=== PATIENT | female | born 1995 | race Caucasian/White ===

== ENCOUNTER 2020-08-20 19:40 | Emergency (ER) | payer BC ==
[~2020-08-20] VITALS: Ht 162.6 cm; Wt 105.1 kg
--- NOTE | 2020-08-20 19:47 | PHYS DOC ---
General Adult HPI: HPI: ".. I ve been having some nausea.. and yesterday..and started gettingsome Rt. chest discomfort.. and some rt. upper abdomen pain..." " I even vomited.. and got a little headache now.." Patient is a 24 year old female who presents with above hx and complaints right lower and right upper abdomen pain associate with nausea and vomiting. Patient has some generalized malaise complaints and mild cephalgia. Patient denies any recent travel or specific ill contacts. No history of trauma. Patient denies any fevers or chills. Patient denies any intake bad food. Patient denies any trauma. Patient normally follows with Dr. Marshall. Review of Systems: Review of Systems: Constitutional: Denies fever or chills Eyes: Denies change in visual acuity HENT: Denies nasal congestion or sore throat Respiratory: Denies cough or shortness of breath Cardiovascular: Complains right lower chest discomfort GI: Complains of right upper quadrant abdominal pain, nausea, vomiting,. Denies bloody stools or diarrhea : Denies dysuria Musculoskeletal: Denies back pain or joint pain Integument: Denies rash Neurologic: Complains of mild headache,. Denies focal weakness or sensory changes Endocrine: Denies polyuria or polydipsia Lymphatic: Denies swollen glands Psychiatric: Denies depression or anxiety Family History: Family History: Noncontributory to presentation Current Medications: Current Meds: See nursing for home meds Physical Exam: PE: Constitutional: Well developed, well nourished, mild distress, non-toxic appearance. [] HENT: Normocephalic, atraumatic, bilateral external ears normal, oropharynx moist, no oral exudates, nose normal. [] Eyes: PERRLA, EOMI, conjunctiva normal, no discharge. [] Neck: Normal range of motion, no tenderness, supple, no stridor. [] Cardiovascular:Heart rate regular rhythm, no murmur [] Lungs & Thorax: Bilateral breath sounds equal apex auscultation [] Abdomen: Bowel sounds hyperactive, soft, right upper quadrant tenderness, no masses, no pulsatile masses. Rebound right upper quadrant. Overall very distended Skin: Warm, dry, no erythema, no rash. [] Back: No tenderness, no CVA tenderness. [] Extremities: No tenderness, no cyanosis, no clubbing, ROM intact, no edema. No psoas sign. No cording. Neurologic: Alert and oriented X 3, normal motor function, normal sensory funct ion, no focal deficits noted. [] Psychologic: Affect anxious, judgement normal, mood normal. [] EKG: EKG: My interpretation EKG shows a sinus rhythm at 95 bpm. No acute morphology [] Radiology/Procedures: Radiology/Procedures: [[address] [address] IMAGING REPORT Signed PATIENT: DANNY POWER ACCOUNT: [id number] : 1995 LOCATION: ER AGE: 24 SEX: F EXAM STATUS: REG ER ORD. PHYSICIAN: DICK POOL MD REASON: Rt upper abd. pain, OMNI 300, 75ml & OMNI 240, 30ml PROCEDURE: CT ABD PELV W/ORAL&IV CONTRAST EXAM: CT Abdomen and Pelvis with IV contrast CLINICAL HISTORY: right upper abdominal pain. COMPARISON: none TECHNIQUE: Helical CT of the abdomen and pelvis was performed following the administration of intravenous contrast. Axial, coronal and sagittal reformatted images were generated. PQRS compliance statement - One or more of the following individualized dose reduction techniques were utilized for this study: 1. Automated exposure control 2. Adjustment of the mA and/or kV according to patient size 3. Use of iterative reconstruction technique FINDINGS: Lower Chest: Lung bases are clear. Abdomen and Pelvis: 8 mm low-density lesion in the inferior right hepatic lobe and 12 mm low-density lesion in the peripheral right hepatic lobe (images 42 and 36 respectively). Liver is enlarged measuring 19.9 cm in length. Gallbladder is normal. No biliary duct dilatation. Pancreas is unremarkable. Spleen is normal in appearance. Adrenal glands are unremarkable. Symmetric nephrograms. No focal renal lesion. No hydronephrosis. Bladder is unremarkable. No abdominal or pelvic lymphadenopathy. Prominent right lower quadrant and inguinal lymph nodes are seen, for example a right common femoral lymph node measures 8 mm short axis. Moderate colonic stool content is seen. Appendix is normal. No bowel obstruction. No abdominal or pelvic ascites. No abdominal or pelvic ascites. No abdominal or pelvic lymphadenopathy. Bones: Bilateral L5 pars defects are seen. No aggressive osseous lesion. IMPRESSION: 1. Hepatomegaly. 2. 3. Indeterminate hepatic lesions can be further assessed by ultrasound. Gallbladder is normal without CT evidence for acute cholecystitis 4. Moderate colonic stool content. Electronically signed by: Mitul Villanueva MD (08/21/2020 2:47 AM) [facility] DICTATED AND SIGNED BY: MITUL VILLANUEVA MD DATE: 08/21/20 0238 CC: ANNABELLE MARSHALL MD; DICK POOL MD ~[facility] 0 ][address] [address] IMAGING REPORT Signed PATIENT: DANNY POWER ACCOUNT: [id number] : 1995 LOCATION: ER AGE: 24 SEX: F EXAM STATUS: REG ER ORD. PHYSICIAN: DICK POOL MD REASON: RT upper quadrant pain PROCEDURE: ACUTE ABDOMEN SERIES EXAM: Frontal view of the chest, AP views of the abdomen in upright and supine positions. CLINICAL INDICATION: Reason: RT upper quadrant pain / Spl. Instructions: / History: COMPARISON: None. FINDINGS and IMPRESSION: The heart is not enlarged. Mediastinal and hilar contours are normal. No focal parenchymal airspace opacity. No pleural effusion or pneumothorax. No abnormal small or large bowel dilatation. Moderate to large volume colonic stool content. No abnormal soft tissue mass effect. No suspicious calcifications are seen. No free intraperitoneal gas. Electronically signed by: Mitul Villanueva MD (08/21/2020 1:29 AM) [facility] DICTATED AND SIGNED BY: MITUL VILLANUEVA MD DATE: 08/21/20 012 CC: ANNABELLE MARSHALL MD; DICK POOL MD ~MTH0 0 Heart Score: C/O Chest Pain: Yes HEART Score for Chest Pain: HEART Score for Chest Pain Response (Comments) Value History Slighlty/Non-Suspicious 0 ECG Normal 0 Age < 45 0 Risk Factors No Risk Factors 0 Troponin < Normal Limit 0 Total 0 Risk Factors: Risk Factors: DM, Current or recent (<one month) smoker, HTN, HLP, family history of CAD, obesity. Risk Scores: Score 0 - 3: 2.5% MACE over next 6 weeks - Discharge Home Score 4 - 6: 20.3% MACE over next 6 weeks - Admit for Clinical Observation Score 7 - 10: 72.7% MACE over next 6 weeks - Early Invasive Strategies Course & Med Decision Making: Course & Med Decision Making Pertinent Labs and Imaging studies reviewed. (See chart for details) Patient stay on a clear fluid diet only for the next 2 days. No solids. No milk products. Allow bowel rest. Push fluids. Take Tylenol and ibuprofen for discomfort. Follow-up primary care. Reexam if no improvement. Return if any concerns. Consider outpatient biliary studies. Avoid high-fat meals. Consider GI consult with EGD and colonoscopy. Discussed with Dr. Marshall Impression: 1. Abdomen Pain 2. Constipation 3. Biliary colic- suspect [] Liu Disclaimer: Liu Disclaimer: This electronic medical record was generated, in whole or in part, using a voice recognition dictation system. Departure Departure: Referrals: ANNABELLE MARSHALL MD (PCP) DICK POOL MD August 20, 2020 19:46
[2020-08-20] MEDS ORDERED: FAMOTIDINE 20 MG/2 ML VIAL IVP ONE (20:00)
[2020-08-20] MEDS ORDERED: ONDANSETRON PF 4 MG/2 ML VIAL. IVP ONE (20:00)
[2020-08-20] MEDS ORDERED: IV RINGERS SOLUTION,LACTATED 1,000 ML IV SCH (20:00)
[2020-08-20 20:46] LABS: BILIRUBIN,URINE SMALL (NEG); CLARITY,URINE CLOUDY; COLOR,URINE AMBER; GLUCOSE,URINE NEG (NEG); NITRITE,URINE NEG (NEG); UROBILINOGEN,URINE 0.2 mg/dL (0.2 mg/dL)
[2020-08-20 20:47] LABS: BACTERIA,URINE FEW /HPF (0-FEW); SQUAMOUS EPITHELIAL CELL,UR FEW /LPF
[2020-08-20 20:48] LABS: BARBITURATES NEG (NEG); BENZODIAZEPINES NEG (NEG); CANNABINOIDS NEG (NEG); COCAINE NEG (NEG); METHADONE NEG (NEG); OPIATES NEG (NEG); PHENCYCLIDINE NEG (NEG)
[2020-08-20 20:49] LABS: AMPHETAMINE/METHAMPHETAMINE NEG (NEG)
[2020-08-20 21:31] LABS: BASO # 0.1 x10^3/uL (0.0-0.2); BASO % 1 % (0-3); EOS # 0.4 x10^3/uL (0.0-0.7); EOS % 3 % (0-3); HEMATOCRIT 42.2 % (36.0-47.0); LYMPH % 19 % (24-48); MEAN CORPUSCULAR HEMOGLOBIN 26 pg (25-35); MEAN CORPUSCULAR HGB CONC 33 g/dL (31-37); MEAN CORPUSCULAR VOLUME 79 fL (79-100); MONO # 0.9 x10^3/uL (0.0-1.1); MONO % 9 % (0-9); NEUT # 7.3 x10^3uL (1.8-7.7); NEUT % 68 % (31-73); PLATELET COUNT 353 x10^3/uL (140-400); RED BLOOD COUNT 5.35 x10^6/uL (3.50-5.40); WHITE BLOOD COUNT 10.6 x10^3/uL (4.0-11.0)
[2020-08-20 21:44] LABS: CALCIUM 8.2 mg/dL (8.5-10.1); CREATININE 0.9 mg/dL (0.6-1.0); GFR 75.7; POTASSIUM 3.5 mmol/L (3.5-5.1)
[2020-08-20 21:50] LABS: ALBUMIN 3.6 g/dL (3.4-5.0); DIRECT BILIRUBIN 0.1 mg/dL (0.0-0.2); TOTAL BILIRUBIN 0.4 mg/dL (0.2-1.0)
--- NOTE | 2020-08-20 22:26 | EKG ---
[address] [address] Test Date: 2020-08-20 Test Time: 21:33:48 Pat Name: DANNY POWER Department: Room: Gender: F Payloader Operator: : 1995 Requested By: DICK POOL Order Number: [id number] Reading MD: Jaime Hong Measurements Intervals Brooks Rate: 95 P: 64 SC: 146 QRS: 31 QRSD: 82 T: 35 QT: 338 QTc: 428 Interpretive Statements SINUS RHYTHM NORMAL ECG RI6.02 No previous ECG available for comparison Electronically Signed On 08-23-2020 15:28:08 CDT by Jaime Hong
[2020-08-21] MEDS ORDERED: KETOROLAC 30 MG/ML VIAL. IVP ONE
[2020-08-21] MEDS ORDERED: IOHEXOL 300 MG/ML 75 ML VIAL. IV ONE (00:15)
[2020-08-21] MEDS ORDERED: CONTRAST GIVEN. MC PRN (00:15)
[2020-08-21] MEDS ORDERED: IOHEXOL 240 MG/ML 50ML VIAL. PO ONE (00:15)
--- NOTE | 2020-08-21 01:32 | RAD ---
EXAM: Frontal view of the chest, AP views of the abdomen in upright and supine positions. CLINICAL INDICATION: Reason: RT upper quadrant pain / Spl. Instructions: / History: COMPARISON: None. FINDINGS and IMPRESSION: The heart is not enlarged. Mediastinal and hilar contours are normal. No focal parenchymal airspace o pacity. No pleural effusion or pneumothorax. No abnormal small or large bowel dilatation. Moderate to large volume colonic stool content. No abn ormal soft tissue mass effect. No suspicious calcifications are seen. No free intraperitoneal gas. Electronically signed by: Mitul James MD (08/21/2020 1:29 AM) [facility]
[2020-08-21] MEDS ORDERED: ONDANSETRON PF 4 MG/2 ML VIAL. IVP ONE (02:45)
--- NOTE | 2020-08-21 02:49 | RAD ---
EXAM: CT Abdomen and Pelvis with IV contrast CLINICAL HISTORY: right upper abdominal pain. COMPARISON: none TECHNIQUE: Helical CT of the abdomen and pelvis was performed following the administration of intrave nous contrast. Axial, coronal and sagittal reformatted images were generated. PQRS compliance statement - One or more of the following individualized dose reduction techniques wer e utilized for this study: 1. Automated exposure control 2. Adjustment of the mA and/or kV according to patient size 3. Use of iterative reconstruction technique FINDINGS: Lower Chest: Lung bases are clear. Abdomen and Pelvis: 8 mm low-density lesion in the inferior right hepatic lobe and 12 mm low-density lesion in the periph eral right hepatic lobe (images 42 and 36 respectively). Liver is enlarged measuring 19.9 cm in lengt h. Gallbladder is normal. No biliary duct dilatation. Pancreas is unremarkable. Spleen is normal in a ppearance. Adrenal glands are unremarkable. Symmetric nephrograms. No focal renal lesion. No hydronephrosis. Bladder is unremarkable. No abdominal or pelvic lymphadenopathy. Prominent right lower quadrant and inguinal lymph nodes are s een, for example a right common femoral lymph node measures 8 mm short axis. Moderate colonic stool content is seen. Appendix is normal. No bowel obstruction. No abdominal or pel natty ascites. No abdominal or pelvic ascites. No abdominal or pelvic lymphadenopathy. Bones: Bilateral L5 pars defects are seen. No aggressive osseous lesion. IMPRESSION: 1. Hepatomegaly. 2. 3. Indeterminate hepatic lesions can be further assessed by ultrasound. Gallbladder is normal withou t CT evidence for acute cholecystitis 4. Moderate colonic stool content. Electronically signed by: Mitul James MD (08/21/2020 2:47 AM) [facility]
[2020-08-21 05:33] VITALS: BP 112/72
== END 2020-08-21 05:33 | disposition home or self-care (01) ==
LOC: ER 19:40
DX: K59.00 Constipation, unspecified (principal)
CPT/HCPCS: 36415; 74022; 74177; 80048; 80076; 80307; 81001; 81025; 82550; 83690; 84484; 84702; 85025; 87086; 93005; 96361; 96374; 96375; 96376; 99285; J1885; J2405; J3490; J7120; Q9966; Q9967

== ENCOUNTER 2020-12-26 01:34 | Emergency (ER) | payer SELFPAY ==
[~2020-12-26] VITALS: Ht 162.6 cm; Wt 113.5 kg
--- NOTE | 2020-12-26 02:06 | PHYS DOC ---
Past History Past Medical History: Depression Past Surgical History: Alcohol Use: None Adult General Chief Complaint Chief Complaint: DENTAL PROBLEM HPI HPI Patient is a 25-year-old female complaining of dental pain. This is a chronic issue for patient. She was recently seen in outpatient setting by dentist and was found to have an active infection of one of her teeth so she took and completed a 7-day course of amoxicillin 500 mg 3 times daily. She finished this approximately 4 days ago. She reported transient improvement in symptoms but reported increased pain and swelling around base of tooth on the bottom left side of mouth. She feels that her actual cheek has been swelling. She is concerned because she was told at last outpatient dental appointment that she will likely require root canal, she is actually scheduled to see dentist today. States she is taken ibuprofen sparingly for pain, also reports taking a hydrocodone approximately 2 hours prior to arrival that made her sleepy only and did not improve her pain. She presents for dental evaluation. She also reports she is having chest pain. She states that she read online and that her dentist said that the infection was so bad that it can cause chest pain. She has no personal history of cardiac disease and no significant family history, she has no risk factors for cardiac disease. No fever, subjective chills reported, no ripping or tearing sensation in chest or torso, no shortness of breath, abdominal pain, nausea vomit diarrhea, urinary symptoms or other concerning signs or symptoms of systemic disease Review of Systems Review of Systems Fourteen body systems of review of systems have been reviewed. See HPI for pertinent positives and negative responses, other arboleda all other systems are negative, non-pertinent or non-contributory Allergies Allergies Allergies Coded Allergies Type Severity Reaction Last Updated Verified No Known Drug Allergies 12/26/20 No Physical Exam Physical Exam Constitutional: Well developed, well nourished, no acute distress, non-toxic appearance. HENT: Normocephalic, atraumatic, bilateral external ears normal, oropharynx moist, no oral exudates, poor dentition with numerous broken teeth, tooth #19 broken with periapical and gingival swelling and irritation concerning for active infection, nose normal. Eyes: PERRLA, EOMI, conjunctiva normal, no discharge. Neck: Normal range of motion, no tenderness, supple, no stridor. Cardiovascular: Heart rate regular, sinus rhythm, no murmurs rubs or gallops Lungs & Thorax: Bilateral breath sounds clear to auscultation Abdomen: Bowel sounds normal, soft, no tenderness, no masses, no pulsatile masses. Nonsurgical abdomen, no peritoneal signs Skin: Warm, dry, no erythema, no rash. Back: No tenderness, no CVA tenderness. Extremities: No tenderness, no cyanosis, no clubbing, ROM intact, no edema. Neurologic: Alert and oriented X 3, grossly normal motor & sensory function, no focal deficits noted. Psychologic: Anxious affect and mood Current Patient Data Vital Signs Vital Signs Date Time Temp Pulse Resp B/P (MAP) Pulse Ox O2 Delivery O2 Flow Rate FiO2 12/26/20 01:40 97.9 92 20 135/84 (101) 100 Room Air Vital Signs Date Time Temp Pulse Resp B/P (MAP) Pulse Ox O2 Delivery O2 Flow Rate FiO2 12/26/20 01:40 97.9 92 20 135/84 (101) 100 Room Air EKG EKG [] Radiology/Procedures Radiology/Procedures [] Heart Score C/O Chest Pain: Yes HEART Score for Chest Pain: HEART Score for Chest Pain Response (Comments) Value History Slighlty/Non-Suspicious 0 Age < 45 0 Risk Factors No Risk Factors 0 Total 0 Risk Factors: Risk Factors: DM, Current or recent (<one month) smoker, HTN, HLP, family history of CAD, obesity. Risk Scores: Risk Factors: DM, Current or recent (<one month) smoker, HTN, HLP, family history of CAD, obesity. Course & Med Decision Making Course & Med Decision Making ABCs unremarkable HPI and physical exam nonconcerning for any emergent or surgical issues Patient suffering from broken tooth #19 with subsequent periapical and gingival swelling without exudate concerning for active infection, no indication for incision and drainage, there is indication for antibiotics despite recent 7-day course of amoxicillin. 1 g IM Rocephin administered Patient also complaining of pain, reportedly took [place] 10 prior to arrival but after K tracks review she does not have any narcotic prescriptions? I am concerned about giving her any narcotics and so, IM Toradol administered Patient's physical exam nonconcerning for any cardiac pain. I feel this is more anxiety in nature than anything in an otherwise healthy individual with no personal or family history of cardiac disease, no history of IV drug use etc. Little indication for further diagnostic work-up in ER setting I advised patient to continue Tylenol and ibuprofen for pain control and contact dentist immediately when they open in a few hours this morning. Return precautions discussed with good verbalized understanding, all questions and concerns addressed prior to departure Liu Disclaimer Liu Disclaimer This electronic medical record was generated, in whole or in part, using a voice recognition dictation system. Departure Departure: Impression: Primary Impression: Dental infection Disposition: HOME / SELF CARE / HOMELESS Condition: STABLE Referrals: ANNABELLE MARSHALL MD (PCP) Additional Instructions: You were seen for dental pain. There does appear to be active infection at this time. You were given IM Rocephin while in ER today in addition to an intramuscular pain injection. You should take Ibuprofen (600-800mg) and Tylenol (500-650mg) alternating every 4-6 hours to help with inflammation and pain while you contact a dentist for further care. You should return to the ED if you develop worsening pain, fever > 101, swelling, redness, or any other new or concerning symptoms. Unfortunately, your pain is not likely to improve without seeing a dentist for further evaluation and treatment of your poor dentition and dental caries. As disclosed, you should call them immediately when their o ffice opens in a few hours from now LITO CRAWFORD DO Dec 26, 2020 02:06
[2020-12-26] MEDS ORDERED: cefTRIAXone SODIUM 1 GM VIAL ONE (02:09)
[2020-12-26] MEDS ORDERED: cefTRIAXone IM 1 GM VIAL IM ONE (02:15)
[2020-12-26] MEDS ORDERED: KETOROLAC 60 MG/2 ML VIAL. IM ONE (02:15)
[2020-12-26 02:30] VITALS: BP 124/78
== END 2020-12-26 02:38 | disposition home or self-care (01) ==
LOC: ER 01:34
DX: K04.7 Periapical abscess without sinus (principal)
CPT/HCPCS: 96372; 99284; J0696; J1885

== ENCOUNTER 2021-01-15 15:14 | Emergency (ER) | payer OTHER ==
[~2021-01-15] VITALS: Ht 162.6 cm; Wt 111.0 kg
[2021-01-15 15:32] VITALS: BP 118/77
--- NOTE | 2021-01-15 16:14 | RAD ---
Left knee 3 views. HISTORY: Left knee pain after fall 3 views were taken the left knee. There is not evidence of an acute fracture. There is a prominent tory int effusion. There is slight lateral subluxation of the patella. MRI could be of benefit to evaluate for other injuries. IMPRESSION: 1. Prominent joint effusion. 2. No acute fracture. Electronically signed by: See Cash MD (01/15/2021 4:12 PM) [facility]
--- NOTE | 2021-01-15 16:42 | PHYS DOC ---
Past History Past Medical History: Depression Past Surgical History: No Surgical History Additional Past Surgical Histo: RT ACL repair Alcohol Use: None General Adult EDM: Chief Complaint: KNEE INJURY HPI: HPI: Patient is a 25-year-old female coming in for left knee pain after a fall last night. Patient was putting up Halloween lights on and fell off of her ladder onto the ground landing on her hands and knees. Patient's only complaint is pain in the left knee pain, states it feels like it is unstable when she walks. No open wounds or abrasions Review of Systems: Review of Systems: All other systems within normal limits except for as noted in the HPI Allergies: Allergies: Allergies Coded Allergies Type Severity Reaction Last Updated Verified No Known Drug Allergies 12/26/20 No Physical Exam: PE: Constitutional: Well developed, well nourished, no acute distress, non-toxic appearance. [] HENT: Normocephalic, atraumatic, bilateral external ears normal, nose normal. [] Eyes: PERRLA, conjunctiva normal, no discharge. [] Neck: No rigidity, supple, no stridor. [] Cardiovascular: Regular rate and rhythm, brisk cap refill [] Lungs & Thorax: Non labored symmetric respirations, no tachypnea or respiratory distress [] Abdomen: Soft, nondistended. Skin: Warm, dry, no erythema, no rash. [] Back: Unremarkable Extremities: No deformities, range of motion grossly intact, no lower extremity edema. Left knee exam, tenderness over medial knee and anterior to the plateau. No anterior posterior laxity, no laxity with varus or valgus stress [] Neurologic: Alert and oriented X 3, no focal deficits noted. [] Psychologic: Affect normal, judgement normal, mood normal. [] Current Patient Data: Vital Signs: Vital Signs Date Time Temp Pulse Resp B/P (MAP) Pulse Ox O2 Delivery O2 Flow Rate FiO2 01/15/21 15:32 98.2 114 18 118/77 (91) 99 EKG: EKG: [] Radiology/Procedures: Radiology/Procedures: [][address] [address] IMAGING REPORT Signed PATIENT: DANNY POWER ACCOUNT: [id number] : 1995 LOCATION: ER AGE: 25 SEX: F EXAM STATUS: REG ER ORD. PHYSICIAN: JEFF PASCUAL MD REASON: LEFT KNEE PAIN AFTER FALL, MEDIAL PAIN PROCEDURE: KNEE LEFT 4V Left knee 3 views. HISTORY: Left knee pain after fall 3 views were taken the left knee. There is not evidence of an acute fracture. There is a prominent joint effusion. There is slight lateral subluxation of the patella. MRI could be of benefit to evaluate for other injuries. IMPRESSION: 1. Prominent joint effusion. 2. No acute fracture. Electronically signed by: See Cash MD (01/15/2021 4:12 PM) [facility] DICTATED AND SIGNED BY: SEE CASH MD DATE: 01/15/211609 CC: JEFF PASCUAL MD; PCP,NO ~MTH0 0 Heart Score: C/O Chest Pain: No Risk Factors: Risk Factors: DM, Current or recent (<one month) smoker, HTN, HLP, family history of CAD, obesity. Risk Scores: Score 0 - 3: 2.5% MACE over next 6 weeks - Discharge Home Score 4 - 6: 20.3% MACE over next 6 weeks - Admit for Clinical Observation Score 7 - 10: 72.7% MACE over next 6 weeks - Early Invasive Strategies Course & Med Decision Making: Course & Med Decision Making Pertinent Labs and Imaging studies reviewed. (See chart for details) Discussed x-ray findings and exam concerning for MCL injury. There is no laxity on valgus stress on exam, but patient has pain in that location discussed the possibility of a partial tear. 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 [] Dragon Disclaimer: Dragon Disclaimer: This electronic medical record was generated, in whole or in part, using a voice recognition dictation system. Departure Departure: Impression: Primary Impression: Left knee injury Disposition: HOME / SELF CARE / HOMELESS Condition: STABLE Referrals: PCP,NO (PCP) Patient Instructions: RICE - Routine Care for Injuries Additional Instructions: Use a hinged knee brace and follow-up with orthopedics, you may contact Dr. Can at: [facility] , [address] [id number] JEFF PASCUAL MD Jan 15, 2021 16:42
== END 2021-01-15 17:20 | disposition home or self-care (01) ==
LOC: ER 15:14
DX: S89.92XA Unspecified injury of left lower leg, initial encounter (principal); W11.XXXA Fall on and from ladder, initial encounter; Y93.89 Activity, other specified; Y92.89 Other specified places as the place of occurrence of the external cause; Y99.8 Other external cause status
CPT/HCPCS: 73564; 99283